=== PATIENT | female | born 1950 | race Caucasian/White ===

== ENCOUNTER 2017-04-10 14:30 | Observation (INO) | payer BC ==
[~2017-04-10] VITALS: Ht 167.6 cm; Wt 104.3 kg
[2017-04-10 11:39] VITALS: BP 102/64
[2017-04-10 11:52] LABS: BASOPHILS % (AUTO) 0.6 % (0.0-5.0); HEMATOCRIT 39.8 % (36-48); LYMPHOCYTES % (AUTO) 26.4 % (21.0-51.0); MEAN CORPUSCULAR HEMOGLOBIN 27.9 pg (27.0-33.0); MEAN CORPUSCULAR HGB CONC 32.7 g/dL (32.0-36.0); MEAN CORPUSCULAR VOLUME 85.2 fL (79-99); MONOCYTES % (AUTO) 8.4 % (3.0-13.0); NEUTROPHILS % (AUTO) 62.6 % (40.0-77.0); PLATELET COUNT (AUTO) 282 K/uL (130-400); RED BLOOD CELL COUNT(AUTO) 4.67 MIL/uL (4.00-5.50); RED CELL DISTRIBUTION WIDTH 13.3 % (11.0-15.5); WHITE BLOOD COUNT (AUTO) 8.9 K/uL (4.8-10.8)
[2017-04-10 11:59] LABS: CREATININE 1.2 mg/dL (0.5-1.5); POTASSIUM 3.7 mmol/L (3.5-5.1)
[~2017-04-10 14:30] MED LIST: AMLO10TA2 PO; HYDR25TA PO; LEVO175T9 PO; METO-408 PO; PANT40TA25 PO; SERT100T12 PO; SIMV40TA5 PO
[2017-04-11] VITALS (21 sets, daily range): BP systolic 113–164; BP diastolic 59–84
[2017-04-11] MEDS ORDERED: CEFAZOLIN SODIUM 1 GM VIAL ONE (07:42)
[2017-04-11] MEDS ORDERED: LACTATED RINGERS 1000ML 1,000 ML IV ONE (08:12)
[2017-04-11] MEDS ORDERED: WATER FOR INJECTION,STERILE 20 ML VIAL ONE (08:49)
[2017-04-11] MEDS: CEFAZOLIN SODIUM 1 GM VIAL IVP SCH ×3 (09:03→20:28)
[2017-04-11] MEDS ORDERED: PROPOFOL 10 MG/ML 20ML VIAL IV ONE (11:30)
[2017-04-11] MEDS ORDERED: NEOSTIGMINE METHYLSULFATE 1MG/ML IV ONE (11:30)
[2017-04-11] MEDS ORDERED: MIDAZOLAM HCL 1 MG/ML 2ML VIAL ONE (11:30)
[2017-04-11] MEDS ORDERED: LIDOCAINE PF 2% 5ML ABBOJECT ONE (11:30)
[2017-04-11] MEDS ORDERED: ONDANSETRON HCL 4 MG/2 ML VIAL ONE (11:30)
[2017-04-11] MEDS ORDERED: SUCCINYLCHOLINE 200MG/10ML SYR ONE (11:30)
[2017-04-11] MEDS ORDERED: DEXAMETHASONE SOD PHOSPHATE 10MG/ML 1ML VIAL ONE (11:30)
[2017-04-11] MEDS ORDERED: GLYCOPYRROLATE 0.2 MG/ML 5 ML VIAL ONE (11:30)
[2017-04-11] MEDS ORDERED: FENTANYL CITRATE PF 50 MCG/1 ML 5ML AMP IV ONE ×2 (11:32→13:06)
[2017-04-11] MEDS ORDERED: ROPIVACAINE 0.5% 5MG/ML 30ML IJ ONE (11:34)
[2017-04-11] MEDS ORDERED: ROCURONIUM BROMIDE 10MG/1ML 5ML VL ONE (12:01)
[2017-04-11] MEDS ORDERED: HYDRALAZINE HCL 20 MG/ML VIAL ONE (12:16)
[2017-04-11] MEDS ORDERED: ESMOLOL HCL 10 MG/ML 10 ML VIAL ONE (12:52)
[2017-04-11] MEDS ORDERED: DIPHENHYDRAMINE HCL 25 MG CAPSULE PO PRN (13:30)
[2017-04-11] MEDS ORDERED: PROMETHAZINE HCL 25 MG/ML 1ML AMPULE IM PRN (13:30)
[2017-04-11] MEDS ORDERED: HYDROCODONE/ACETAMINOPHEN 5/325 MG TAB PO PRN (13:30)
[2017-04-11] MEDS ORDERED: KETOROLAC TROMETHAMINE 15MG/ML IV PRN (13:30)
[2017-04-11] MEDS ORDERED: LIDOCAINE HCL-MPF 1% 2ML VIAL IVP PRN (13:30)
[2017-04-11] MEDS ORDERED: POTASSIUM CHLORIDE 10% ELIXIR 20 MEQ/15 ML UDCUP PO PRN (13:30)
[2017-04-11] MEDS ORDERED: CALCIUM CARBONATE 500 MG TABLET PO PRN (13:30)
[2017-04-11] MEDS ORDERED: DiphenhydrAMINE HCL 50 MG/ML VIAL IVP PRN (13:30)
[2017-04-11] MEDS ORDERED: FERROUS FUMARATE 324 MG TABLET PO PRN (13:30)
[2017-04-11] MEDS ORDERED: POTASSIUM CHLORIDE 20MEQ/100ML 100 ML IV PRN (13:30)
[2017-04-11] MEDS ORDERED: TEMAZEPAM 15 MG CAPSULE PO PRN (13:30)
[2017-04-11] MEDS ORDERED: POTASSIUM CHLORIDE 20 MEQ ERTAB PO PRN (13:30)
[2017-04-11] MEDS ORDERED: METOPROLOL TARTRATE 1 MG/ML 5ML VIAL IV ONE (13:48)
[2017-04-11] MEDS ORDERED: MEPERIDINE-PF 25 MG/ML SYG ONE ×2 (14:17→14:28)
[2017-04-11] MEDS: SODIUM CHLORIDE 0.9% 1000ML 1,000 ML IV SCH ×2 (15:49→23:23)
[2017-04-11] MEDS: HYDROCODONE/ACETAMINOPHEN 5/325 MG TAB PO PRN (18:04)
[2017-04-11] MEDS: CEFAZOLIN 3GM /D5W 100ML 100 ML IV SCH ×2 (18:30→23:21)
[2017-04-11] MEDS ORDERED: ONDANSETRON HCL 4 MG/2 ML VIAL IV PRN (20:00)
[2017-04-11] MEDS ORDERED: MORPHINE-NS 50 MG/50 ML 50 ML IV PRN (20:00)
[2017-04-11] MEDS ORDERED: NALOXONE HCL 0.4 MG/1 ML ML IVP PRN (20:00)
[2017-04-11] MEDS: AMLODIPINE BESYLATE 5 MG TAB PO SCH (20:29)
[2017-04-11] MEDS: METOPROLOL TARTRATE 25 MG TAB PO SCH (20:29)
[2017-04-12] MEDS: CEFAZOLIN SODIUM 1 GM VIAL IVP SCH (02:56)
[2017-04-12 04:58] VITALS: BP 119/56
[2017-04-12] MEDS: LEVOTHYROXINE 100 MCG TABLET PO SCH (06:02)
[2017-04-12] MEDS: LEVOTHYROXINE 75 MCG TABLET PO SCH (06:02)
[2017-04-12 08:07] VITALS: BP 146/89
[2017-04-12] MEDS: POLYETHYLENE GLYCOL 3350 17 GM POWD.PACK PO SCH (08:52)
[2017-04-12] MEDS: SERTRALINE HCL 50 MG TABLET PO SCH (08:53)
[2017-04-12] MEDS: ATORVASTATIN CALCIUM 20 MG TABLET PO SCH (08:53)
[2017-04-12] MEDS: PANTOPRAZOLE SODIUM 40 MG TABLET.DR PO SCH (08:53)
[2017-04-12] MEDS: METOPROLOL TARTRATE 25 MG TAB PO SCH ×2 (08:53→19:37)
[2017-04-12] MEDS: ENOXAPARIN SODIUM 40 MG/0.4 ML SYRINGE SQ SCH (08:53)
[2017-04-12] MEDS: HYDROCHLOROTHIAZIDE 25 MG TABLET PO SCH (08:54)
[2017-04-12] MEDS: SODIUM CHLORIDE 0.9% 1000ML 1,000 ML IV SCH (08:54)
[2017-04-12 11:54] VITALS: BP 131/59
[2017-04-12] MEDS: PSYLLIUM SEED 1 EACH PACKET PO SCH (13:09)
[2017-04-12 15:58] VITALS: BP_SYST 111; BP_SYST 131; BP_DIAS 54; BP_DIAS 63
[2017-04-12] MEDS: AMLODIPINE BESYLATE 5 MG TAB PO SCH (19:37)
[2017-04-12 20:53] VITALS: BP 137/70
[2017-04-13 00:02] VITALS: BP 128/68
[2017-04-13 05:05] VITALS: BP 148/64
[2017-04-13] MEDS: LEVOTHYROXINE 100 MCG TABLET PO SCH (05:54)
[2017-04-13] MEDS: LEVOTHYROXINE 75 MCG TABLET PO SCH (05:54)
[2017-04-13 07:30] VITALS: BP 121/90
[2017-04-13] MEDS: ENOXAPARIN SODIUM 40 MG/0.4 ML SYRINGE SQ SCH (08:03)
[2017-04-13] MEDS: HYDROCHLOROTHIAZIDE 25 MG TABLET PO SCH (08:05)
[2017-04-13] MEDS: ATORVASTATIN CALCIUM 20 MG TABLET PO SCH (08:06)
[2017-04-13] MEDS: POLYETHYLENE GLYCOL 3350 17 GM POWD.PACK PO SCH (08:06)
[2017-04-13] MEDS: METOPROLOL TARTRATE 25 MG TAB PO SCH (08:06)
[2017-04-13] MEDS: PANTOPRAZOLE SODIUM 40 MG TABLET.DR PO SCH (08:06)
[2017-04-13] MEDS: SERTRALINE HCL 50 MG TABLET PO SCH (08:08)
[2017-04-13] MEDS: HYDROCODONE/ACETAMINOPHEN 5/325 MG TAB PO PRN (08:09)
[2017-04-13] MEDS ORDERED: BISACODYL 5 MG TABLET.DR PO ONE (10:15)
[2017-04-13] MEDS: PSYLLIUM SEED 1 EACH PACKET PO SCH (10:57)
[2017-04-13 11:00] VITALS: BP 147/68
[2017-04-13] MEDS ORDERED: ASPI-1012 PO (11:23)
[2017-04-13] MEDS ORDERED: HYDR-2132 PO (11:23)
[2017-04-13] MEDS ORDERED: BISACODYL 5 MG TABLET.DR PO PRN (13:30)
[2017-04-13 16:00] VITALS: BP 132/69
[2017-04-13] MEDS ORDERED: BISACODYL 10 MG SUPP.RECT RC ONE (16:00)
[2017-04-14] MEDS ORDERED: BISACODYL 10 MG SUPP.RECT RC PRN (13:30)
== END 2017-04-13 19:36 ==
LOC: DAHIP 04-11 06:29 → EDSTATUS 04-11 14:30 → 4AH 04-11 15:00
PROVIDERS: ADMIT Orthopaedic Surgery; ATTEND Orthopaedic Surgery
DX: S82.842A Displaced bimalleolar fracture of left lower leg, initial encounter for closed fracture (principal); W19.XXXA Unspecified fall, initial encounter; Y93.89 Activity, other specified; Y92.89 Other specified places as the place of occurrence of the external cause; Y99.8 Other external cause status
CPT/HCPCS: 27814; 36415; 76000; 80048; 85025; 93005; 96372 ×3; 96374; 96375; 96376; 97116 ×2; 97161; A4218 ×4; A4649; A4930 ×2; A6223; C1713 ×3; C1776; C2713; G0378 ×62; G8978; G8979; G8980; G8981; G8982; G8983; J0330; J0360; J0690 ×6; J1100; J1650 ×2; J1885; J2001; J2175 ×2; J2250; J2270; J2405; J2550; J2704; J2710; J2795; J3010 ×2; J3490 ×4; J7030 ×4; J7120; Q4051

== ENCOUNTER → 2017-05-16 | Outpatient (CLI) | payer BC ==
[~2017-05-16] MED LIST changes: +ASPI-1012 PO; +HYDR-2132 PO
== END | disposition home or self-care (01) ==
LOC: OIH 11:25
PROVIDERS: ATTEND Family Medicine
DX: S82.892D Other fracture of left lower leg, subsequent encounter for closed fracture with routine healing (principal); X58.XXXD Exposure to other specified factors, subsequent encounter
CPT/HCPCS: 73610

== ENCOUNTER → 2017-08-15 | Outpatient (CLI) | payer BC | END | disposition home or self-care (01) | LOC: RAH 08:38 | PROVIDERS: ATTEND Family Medicine | DX: Z12.31 Encounter for screening mammogram for malignant neoplasm of breast (principal) | CPT/HCPCS: 77067 ==

== ENCOUNTER → 2018-06-21 | Outpatient (CLI) | payer BC, MEDICARE ==
[~2018-06-21] MED LIST changes: -AMLO10TA2 PO; +AMLO10TA7 PO
== END | disposition home or self-care (01) ==
LOC: RAH 14:00
PROVIDERS: ATTEND Family Medicine
DX: M47.814 Spondylosis without myelopathy or radiculopathy, thoracic region (principal); M54.5 Low back pain; N32.89 Other specified disorders of bladder
CPT/HCPCS: 72070; 76770

== ENCOUNTER → 2018-08-06 | Outpatient (CLI) | payer BC, MEDICARE | END | disposition home or self-care (01) | LOC: RAH 08:41 | PROVIDERS: ATTEND Family Medicine | DX: R10.11 Right upper quadrant pain (principal) | CPT/HCPCS: 76705 ==

== ENCOUNTER → 2018-12-18 | Outpatient (CLI) | payer BC, MEDICARE | END | disposition home or self-care (01) | LOC: RAH 07:27 | PROVIDERS: ATTEND Family Medicine | DX: R10.11 Right upper quadrant pain (principal); R11.2 Nausea with vomiting, unspecified; F32.9 Major depressive disorder, single episode, unspecified | CPT/HCPCS: 78226; A9537 ==

== ENCOUNTER → 2019-11-10 | Outpatient (CLI) | payer OTHER, MEDICARE ==
[~2019-11-10] MED LIST changes: +SIMV-46 PO; -SIMV40TA5 PO
== END | disposition home or self-care (01) ==
LOC: RAH 15:10
PROVIDERS: ATTEND Family Medicine
DX: M19.072 Primary osteoarthritis, left ankle and foot (principal); M24.675 Ankylosis, left foot
CPT/HCPCS: 73630

== ENCOUNTER → 2022-08-21 | Outpatient (CLI) | payer BC ==
[~2022-08-21] MED LIST changes: +AMLO-258 PO; -AMLO10TA7 PO; -PANT40TA25 PO; +PANT40TA54 PO; +SERT-440 PO; -SERT100T12 PO
== END | disposition home or self-care (01) ==
LOC: RAH 11:12
PROVIDERS: ATTEND Family Medicine
DX: M47.815 Spondylosis without myelopathy or radiculopathy, thoracolumbar region (principal); U09.9 Post COVID-19 condition, unspecified
CPT/HCPCS: 71046

== ENCOUNTER → 2023-03-19 | Outpatient (CLI) | payer BC, MEDICARE ==
[~2023-03-19] MED LIST changes: +ALBUHFA IH; -ASPI-1012 PO; +CYAN250014 PO; +ERGO500093 PO; +ESCI20TA38 PO; -HYDR-2132 PO; -HYDR25TA PO; +LEVO-70 PO; +LEVO112C4 PO; -LEVO175T9 PO; +LOSA100T59 PO; +ROSU10TA28 PO; -SIMV-46 PO; +VARE0.03 NS
== END | disposition home or self-care (01) ==
LOC: RAH 14:32
PROVIDERS: ATTEND Family Medicine
DX: R06.02 Shortness of breath (principal)
CPT/HCPCS: 71046

== ENCOUNTER → 2023-04-04 | Outpatient (CLI) | payer BC, MEDICARE | END | disposition home or self-care (01) | LOC: RAH 12:18 | PROVIDERS: ATTEND Internal Medicine Critical Care Medicine | DX: R91.8 Other nonspecific abnormal finding of lung field (principal); R06.00 Dyspnea, unspecified; M47.815 Spondylosis without myelopathy or radiculopathy, thoracolumbar region | CPT/HCPCS: 71250 ==

== ENCOUNTER → 2023-05-31 | Outpatient (CLI) | payer BC, MEDICARE | END | disposition home or self-care (01) | LOC: RAH 10:50 | PROVIDERS: ATTEND Family Medicine | DX: M17.11 Unilateral primary osteoarthritis, right knee (principal); M25.561 Pain in right knee; M79.89 Other specified soft tissue disorders | CPT/HCPCS: 73560 ==

== ENCOUNTER → 2023-11-01 | Outpatient (CLI) | payer OTHER, MEDICARE ==
[~2023-11-01] MED LIST changes: -ROSU10TA28 PO; +ROSU10TA72 PO
== END | disposition home or self-care (01) ==
LOC: RAH 13:14
PROVIDERS: ATTEND Family Medicine
DX: Z12.31 Encounter for screening mammogram for malignant neoplasm of breast (principal); R92.323 Mammographic fibroglandular density, bilateral breasts
CPT/HCPCS: 77067

== ENCOUNTER → 2023-12-07 | Outpatient (CLI) | payer OTHER | END | disposition home or self-care (01) | LOC: RAH 13:23 | PROVIDERS: ATTEND Internal Medicine Critical Care Medicine | DX: J84.9 Interstitial pulmonary disease, unspecified (principal) | CPT/HCPCS: 71250 ==

== ENCOUNTER → 2025-02-13 | Outpatient (CLI) | payer BC ==
[~2025-02-13] MED LIST changes: -LEVO112C4 PO; +LEVO112C5 PO; -ROSU10TA72 PO; +ROSU10TA98 PO
--- NOTE | 2025-02-13 17:35 | HMCIMG ---
EXAM: US ??? Soft Tissue Lower Extremity. CLINICAL HISTORY: Unspecified acquired deformity of the left lower leg. TECHNIQUE: Real-time ultrasound examination of the left calf performed using 2-D rosado scale, color Doppler flow, and spectral waveform analysis. COMPARISON: None provided. FINDINGS: Anatomical Site Evaluated: Left calf area. [place] (Region of Interest): Left calf lateral area appears within normal limits. Right calf lateral area: Examined for comparison and appears unremarkable. IMPRESSION: * Normal sonographic appearance of the evaluated left calf soft tissues. * No focal lesion, collection, or abnormal vascularity detected. * Contralateral right calf used for comparison???appears normal. /[place]
== END | disposition home or self-care (01) ==
LOC: RAH 13:45
PROVIDERS: ATTEND Family Medicine
DX: M21.962 Unspecified acquired deformity of left lower leg (principal); R22.42 Localized swelling, mass and lump, left lower limb
CPT/HCPCS: 76882